=== PATIENT | female | born 1965 | race Two or more races ===

== ENCOUNTER 2016-11-10 12:49 | Emergency (ER) | payer MEDICARE, OTHER ==
[~2016-11-10] VITALS: Ht 154.9 cm; Wt 72.6 kg
[2016-11-10 13:02] VITALS: BP 137/96
[2016-11-10] MEDS ORDERED: NALBUPHINE HCL 10 MG/1ml INJECTION IM ONE (13:30)
== END 2016-11-10 14:13 | disposition home or self-care (01) ==
LOC: ER 12:49
DX: G89.29 Other chronic pain (principal); M25.572 Pain in left ankle and joints of left foot; Z98.890 Other specified postprocedural states
CPT/HCPCS: 96372; 99283; J2300

== ENCOUNTER 2016-11-21 09:53 | Emergency (ER) | payer MEDICARE, OTHER ==
[~2016-11-21] VITALS: Ht 154.9 cm; Wt 72.6 kg
[2016-11-21 10:04] VITALS: BP 147/98
== END 2016-11-21 13:17 | disposition left against medical advice (07) ==
LOC: ER 09:54
DX: R11.2 Nausea with vomiting, unspecified (principal); R19.7 Diarrhea, unspecified; R10.30 Lower abdominal pain, unspecified; Z53.21 Procedure and treatment not carried out due to patient leaving prior to being seen by health care provider

== ENCOUNTER 2017-01-11 12:54 | Emergency (ER) | payer MEDICARE, OTHER ==
[~2017-01-11] VITALS: Ht 154.9 cm; Wt 44.5 kg
[2017-01-11 14:08] LABS: Basophils # (auto) 0 uL; Basophils % (auto) 0.6 % (0.0-2.0); Eosinophils # (auto) 0.3 uL; Eosinophils % (auto) 3.2 % (0.0-7.0); Hematocrit 39.8 % (36.0-46.0); Hemoglobin 13.5 g/dL (12.2-16.2); Lymphocytes # (auto) 2.3 uL; Mean Corpuscular Hgb Conc. 33.8 g/dL (32.0-36.0); Mean Corpuscular Volume 91.5 fL (80.0-100.0); Mean Platelet Volume 9.3 fL (7.4-10.4); Monocytes # (auto) 0.5 uL; Monocytes % (auto) 5.5 % (0.0-12.0); Neutrophils # (auto) 5.2 uL; Neutrophils % (auto) 62.7 % (37.0-80.0); Platelet Count (auto) 392 10^3/uL (140-450); Red Cell Distribution Width 15.1 % (11.6-16.0); White Blood Cell 8.3 10^3/uL (4.4-10.8)
[2017-01-11 14:25] LABS: Albumin 4.1 g/dL (3.4-5.0); Alkaline Phosphatase 89 U/L (45-117); Anion Gap 9 (5-15); Aspartate Aminotransferase 27 U/L (15-37); BUN/Creatinine Ratio 16.1; Bilirubin, Total 0.3 mg/dL (0.2-1.0); Blood Urea Nitrogen 10 mg/dL (7-18); Calcium 9.5 mg/dL (8.5-10.1); Carbon Dioxide 23 mmol/L (21-32); Chloride 110 mmol/L (98-107); GFR African American 131 mL/min; GFR Non-African American 108 mL/min; Glucose 111 mg/dL (74-106); Potassium 3.6 mmol/L (3.5-5.1); Sodium 142 mmol/L (136-145); Total Protein 7.9 g/dL (6.4-8.2)
[2017-01-11 15:32] VITALS: BP 172/113
[2017-01-11] MEDS ORDERED: ALPRAZolam 0.5 MG TAB PO ONE (16:30)
[2017-01-11 16:32] LABS: Urine Bilirubin Negative (Negative); Urine Blood Negative /uL (Negative); Urine Color Yellow (Yellow); Urine Glucose Normal (Normal); Urine Ketone Negative (Negative); Urine Nitrite Negative (Negative); Urine RBC 2 /hpf (0 - 4); Urine Squamous Epithelial Cell FEW /hpf (<5); Urine Urobilinogen Normal (Negative)
== END 2017-01-11 16:36 | disposition home or self-care (01) ==
LOC: ER 12:54
DX: F10.239 Alcohol dependence with withdrawal, unspecified (principal); Y90.0 Blood alcohol level of less than 20 mg/100 ml; F17.210 Nicotine dependence, cigarettes, uncomplicated; F41.9 Anxiety disorder, unspecified; F31.9 Bipolar disorder, unspecified
CPT/HCPCS: 36415; 80053; 80307; 80320; 81001; 85025

== ENCOUNTER 2017-02-17 20:57 | Emergency (ER) | payer MEDICARE, MEDICAID ==
[~2017-02-17] VITALS: Ht 180.3 cm; Wt 74.4 kg
[2017-02-17 21:19] VITALS: BP 152/97
== END 2017-02-17 23:58 | disposition home or self-care (01) ==
LOC: ER 20:59
DX: F32.9 Major depressive disorder, single episode, unspecified (principal); F17.210 Nicotine dependence, cigarettes, uncomplicated; E78.00 Pure hypercholesterolemia, unspecified; Z76.0 Encounter for issue of repeat prescription

== ENCOUNTER 2019-09-15 12:59 | Emergency (ER) | payer MEDICARE, MEDICAID ==
[~2019-09-15] VITALS: Ht 154.9 cm; Wt 73.5 kg
[2019-09-15 17:11] VITALS: BP 127/73
[2019-09-15] MEDS: HYDROcodone-ACET 10/325MG TAB PO ONE (17:20)
== END 2019-09-15 18:10 | disposition home or self-care (01) ==
LOC: ER 12:59
DX: M79.672 Pain in left foot (principal); R05 Cough; R09.81 Nasal congestion; R07.0 Pain in throat; R20.0 Anesthesia of skin; F17.210 Nicotine dependence, cigarettes, uncomplicated
CPT/HCPCS: 73630